=== PATIENT | female | born 1990 | race Two or more races ===

== ENCOUNTER → 2019-05-11 | Outpatient (CLI) | payer OTHER ==
--- NOTE | 2019-05-11 15:51 | RAD ---
EXAM: Obstetrics sonogram. HISTORY: Size and dates discrepancy. TECHNIQUE: Sonographic imaging of a gravid uterus was performed. COMPARISON: None. FINDINGS: There is a single intrauterine fetus in cephalic presentation with a normal heart rate of 128 bpm. There is a grade 1 posterior placenta without evidence of placenta previa. The amniotic fluid index is normal. The cervix is closed and measures 5.7 cm in length. The stomach, kidneys, bladder, spine, facial profile, extremities, brain and heart are unremarkable. There is a three-vessel umbilical cord. The biparietal diameter is 4.51 cm, corresponding with 19 weeks and 4 days and the 47th percentile. The head circumference is 16.48 cm, corresponding with 19 weeks and 1 day and the 20th percentile. The abdominal circumference is 15.21 cm, corresponding with 20 weeks and 3 days and the 69th percentile. The femoral length is 3.45 cm, corresponding with 20 weeks and 6 days and the 81st percentile. The estimated gestational age patient combined ultrasound measurements is 20 weeks and 0 days and the estimated due date is 09/28/2019. The estimated weight is 354 g. IMPRESSION: Single intrauterine fetus with normal heart rate and gestational age based on ultrasound measurements of 20 weeks and 0 days. Electronically signed by: Tamanna Vieira MD (05/11/2019 3:48 PM) [facility] – [place]
== END | disposition home or self-care (01) ==
LOC: US 13:50
PROVIDERS: ATTEND Obstetrics & Gynecology
DX: O26.842 Uterine size-date discrepancy, second trimester (principal); Z3A.20 20 weeks gestation of pregnancy
CPT/HCPCS: 76805